=== PATIENT | male | born 1990 | race Caucasian/White ===

== ENCOUNTER 2020-01-25 15:35 | Emergency (ER) | payer BC ==
--- NOTE | 2020-01-25 16:52 | EDM.PDOC ---
ED HPI GENERAL MEDICAL PROBLEM - General Chief Complaint: Behavioral/Psych Stated Complaint: MENTAL EVAL/MEDICAL CLEARANCE Time Seen by Provider: 01/25/20 16:34 Source of Information: Reports: Patient, RN Notes Reviewed, Other (protective services officer) - History of Present Illness INITIAL COMMENTS - FREE TEXT/NARRATIVE: 29-year-old male has been brought here by having [employer] staff officer having been arrested for driving while impaired. He was on the interstate [place] from [place] to [place] and erratic driving behavior was reported to the [facility]. Letter being arrested he started making some comments about not wanting to live. Therefore he is brought here to the emergency department for further mental health evaluation. Admits that he does abuse alcohol. He states that he drinks wine and vodka almost every day. He does not deny being intoxicated at this time. The weapons officer states that he refused the breathalyzer test. He will be going to the [facility] under arrest once he leaves the ED. I did question him whether he has had any thoughts of self-harm or killing himself prior to being arrested today and states that no he has not, that he does not want to or kill himself. He is not on any current antidepressants or other medications. He has not recently visited with any counselor or health professional regarding depression or addiction problems. - Related Data Allergies Allergy/AdvReac Type Severity Reaction Status Date / Time tree nut Allergy Hives Verified 01/25/20 15:46 Home Meds: Home Meds . [No Known Home Meds] 01/25/20 [History] Past Medical History - Past Health History Medical/Surgical History: Denies Medical/Surgical History Social & Family History - Tobacco Use Smoking Status *Q: Never Smoker - Alcohol Use Days Per Week of Alcohol Use: 7 Number of Drinks Per Day: 5 Total Drinks Per Week: 35 - Recreational Drug Use Recreational Drug Use: No ED ROS GENERAL - Review of Systems Review Of Systems: See Below Constitutional: Reports: No Symptoms HEENT: Reports: No Symptoms Respiratory: Denies: Shortness of Breath Cardiovascular: Denies: Chest Pain GI/Abdominal: Denies: Abdominal Pain, Vomiting Musculoskeletal: Reports: No Symptoms Skin: Reports: No Symptoms Neurological: Denies: Headache, Trouble Speaking, Difficulty Walking Psychiatric: Denies: Depression, Homicidal Ideation, Suicidal Ideation (No suicidal ideation at this time) ED EXAM, NEURO - Physical Exam Exam: See Below General Appearance: Alert, Other (Ambulatory without difficulty) Eye Exam: Bilateral Eye: Conjunctival Injection Throat/Mouth: Normal Inspection Head Exam: Atraumatic. No: Facial Swelling Neck: Supple Respiratory/Chest: No Respiratory Distress, Lungs Clear, Normal Breath Sounds Cardiovascular: Regular Rate, Rhythm Neurological: Alert, No Motor/Sensory Deficits, Other (Ambulatory without difficulty, [id number] testing very mildly slow but without difficulty) Extremities: Normal Inspection Psychiatric: Other Skin Exam: Warm, Normal Color Course - Vital Signs Last Recorded V/S: Last Vital Signs Temp 98.5 F 01/25/20 15:42 Pulse 87 01/25/20 15:42 Resp 16 01/25/20 15:42 BP 133/108 H 01/25/20 15:42 Pulse Ox 96 01/25/20 15:42 - Re-Assessments/Exams Free Text/Narrative Re-Assessment/Exam: 01/25/20 17:12 Patient does deny feeling suicidal, intent for self harm or intent to harm others at this time. He does admit to stress, embarassment over being arrested for DWI and does admit to chronic alcoholism. Departure - Departure Time of Disposition: 16:47 Disposition: Home, Self-Care 01 Condition: Fair Clinical Impression: Alcohol intoxication Qualifiers: Complication of substance-induced condition: uncomplicated Qualified Code(s): F10.920 - Alcohol use, unspecified with intoxication, uncomplicated - Discharge Information Referrals: PCP,None [Primary Care Provider] - Forms: ED Department Discharge Additional Instructions: A medical screening exam has been done. No acute medical emergency condition is apparent at this time. Follow up with counselor at [facility] or elsewhere as needed when you are sober for feelings of stress, anxiety, depression, self harm, alcohol dependency or otherwise as needed. Return to our Emergency Dept. or [place] [facility] dept. as needed. Sepsis Event Note - Evaluation Sepsis Screening Result: No Definite Risk - Focused Exam Date Exam was Performed: 01/27/20 Time Exam was Performed: 02:38
== END 2020-01-25 17:00 | disposition home or self-care (01) ==
LOC: JD.ED 15:35
DX: F10.920 Alcohol use, unspecified with intoxication, uncomplicated (principal); Z91.018 Allergy to other foods
CPT/HCPCS: 99283